=== PATIENT | female | born 1950 | race Caucasian/White ===

== ENCOUNTER 2017-07-03 09:30 | Inpatient (IN) | payer OTHER ==
--- NOTE | 2017-07-06 12:13 | HP ---
Satellite [facility] - Chief Complaint Chief Complaint: right knee - Past Medical History Allergies/Adverse Reactions: Allergies Allergy/AdvReac Type Severity Reaction Status Date / Time No Known Drug Allergies Allergy Verified 05/30/17 12:44 - Current Medications Current Medications: Home Medications Medication Instructions Recorded Atorvastatin Ca [Lipitor] 40 mg PO HS 05/30/17 Cholecalciferol (Vitamin D3) 2,000 unit PO DAILY 05/30/17 [Vitamin D] Diltiazem Cd [Cardizem Cd -] 300 mg PO HS 05/30/17 Satellite Physical Exam - Physical Examination General Appearance: Well Nourished, Well Developed, Alert & Oriented x3 ENT: Clear Lung: Normal air movement Heart: Regular rate & rhythm Extremities: Other (right knee- +swelling, + ttp, decr rom, nvi xrays shw grade 4 tricompartmental djd) Neurological: Intact, Alert, Oriented Satellite Impression/Plan - Impression/Plan Impression: right knee djd Operative Procedure: right aruna tkr Date to be Performed: 07/10/17
[2017-07-10] MEDS ORDERED: CELECOXIB 200 MG CAPSULE PO ONE (10:00)
[2017-07-10] MEDS ORDERED: CEFAZOLIN 1 GM/D5W 1 GRAM/50 ML BAG IVPB ONE (10:00)
[2017-07-10] MEDS ORDERED: GABAPENTIN 300 MG CAPSULE (FP) PO ONE (10:00)
[2017-07-10] MEDS ORDERED: oxyCODONE HCL 10 MG SUSTAINED ACTING TABLET PO ONE (10:00)
[2017-07-10] MEDS ORDERED: TRANEXAMIC ACID 1000 MG/10 ML VIAL IVPUSH ONE (10:00)
[2017-07-10 10:18] VITALS: BMI 27.9
[2017-07-10] MEDS ORDERED: MIDAZOLAM HCL 2 MG/2 ML SINGLE DOSE VIAL ONE ×2 (11:47→12:56)
[2017-07-10] MEDS ORDERED: BUPIVACAINE LIPOSOME/PF (EXPAREL) 266 MG/20 ML VIAL ONE (11:48)
[2017-07-10] MEDS ORDERED: VANCOMYCIN 1,000 MG VIAL (RESTRICTED TO ID ONLY) ONE (11:57)
[2017-07-10] MEDS ORDERED: ceFAZolin SODIUM 1 GM VIAL ONE ×2 (11:57→12:50)
[2017-07-10] MEDS ORDERED: ROPIVACAINE HCL 0.5% 30ML VIAL ONE (12:09)
[2017-07-10] MEDS ORDERED: SODIUM CHLORIDE 0.9% P/F 10 ML VIAL IJ ONE (12:50)
[2017-07-10] MEDS ORDERED: PROPOFOL 20 ML ONE ×2 (13:02→14:02)
[2017-07-10] MEDS ORDERED: ONDANSETRON 4 MG/2 ML VIAL IVPUSH PRN ×2 (14:36→14:49)
[2017-07-10] MEDS ORDERED: MAGNESIUM HYDROX 2400MG/30ML ORAL SUSPENSION 30 ML CUP PO PRN (14:36)
[2017-07-10] MEDS ORDERED: MAG HYDROX/AL HYDROX/SIMETH 30 ML UNIT-DOSE CUP PO PRN (14:36)
--- NOTE | 2017-07-10 14:38 | OP ---
Operative Note - Note: Operative Date: 07/10/17 (oscar) Pre-Operative Diagnosis: right knee djd Operation: right aruna tkr Post-Operative Diagnosis: Same as Pre-op Surgeon: Travis Porter Intelligence Agent: Ramon Abdul Anesthesiologist/EDUCATIONAL INSTITUTION PRESIDENT: Jose Herrera Anesthesia: Spinal, Local Specimens Removed: bone fragments Estimated Blood Loss (mls): 150 Operative Report Dictated: Yes
[2017-07-10] MEDS ORDERED: LACTATED RINGERS SOLUTION 1,000 ML IV SCH (14:45)
[2017-07-10] MEDS ORDERED: PROMETHAZINE HCL 25 MG/1 ML VIAL IVPUSH PRN (14:49)
[2017-07-10] MEDS: ACETAMINOPHEN 325 MG TABLET (FP) PO SCH ×2 (15:08→21:21)
[2017-07-10] MEDS: oxyCODONE HCL 5 MG TABLET PO PRN ×3 (15:30→21:24)
--- NOTE | 2017-07-10 15:40 | SPEC ---
DATE OF OPERATION: 07/10/2017 PREOPERATIVE DIAGNOSIS: Degenerative joint disease, right knee. POSTOPERATIVE DIAGNOSIS: Degenerative joint disease, right knee. PROCEDURE: Right total knee replacement with robotic-assisted navigation (Makoplasty). SURGICAL ATTENDING: Travis Porter M.D. SITE HEAD: David Pina ANESTHESIA: Regional and spinal. CLOSURE: A cemented Triathlon knee system with a 2 PS femur, a 2 tibia, a 9 polyethylene, a 32 patella, number 1 Vicryl fascia, 0 and 2-0 subcutaneous, and 3-0 Monocryl for skin with skin glue, 4-0 undyed Vicryl for pin sites. ESTIMATED BLOOD LOSS: Approximately 100 mL. COMPLICATIONS: None. CONDITION: To recovery room in stable condition. DESCRIPTION OF OPERATIVE PROCEDURE: Patient was taken to the operating room on March 20, 2017. Regional and general anesthesia was administered by the anesthesiologist. IV Kefzol and TXA were administered by the anesthesiologist. Well-padded pneumatic tourniquet was placed on the proximal thigh. The right lower extremity was prepped and draped in the usual sterile fashion. The leg was exsanguinated with an Esmarch bandage, and tourniquet was inflated to 275 mmHg. A 12 to 15-cm longitudinal midline incision was incised while centered over the patella. The dissection was carried down to the level of the extensor mechanism with sufficient flaps made to adequately perform the procedure. A medial parapatellar arthrotomy was then performed. We made a cuff of tissue on the patella for later closure. The patella was inverted, the knee was flexed up. The fat pad was excised. The subperiosteal dissection was on the anteromedial proximal tibia around towards the direction of the MCL. The ACL and the PCL were transected and debrided. The meniscal remnants of the medial and lateral meniscus were debrided and removed. This allowed the knee to be able to "be brought forward." The checkpoints were malleted into the tibia and into the femur. Two threaded pins were drilled anteroposteriorly proximal to the knee through the previous incision, through the anterior cortex, then just engaging the posterior cortex. To these pins was assembled the femoral navigation array. One handbreadth below the tibial tubercle, 2 stab incisions were used to drill 2 threaded pins in parallel fashion into the tibia, again through the anterior cortex and just engaging the posterior cortex. To these pins was fastened the tibial arrays. The knee was then registered with the navigation device with center of rotation of the hip, medial and lateral malleoli, both checkpoints, and multiple points on both the femur and the tibia to ensure excellent registration. The navigation device was directed off the "top of the bubbles" on both the femur and the tibia. The navigation passed within less than 0.5 mm to plan. The knee was then thoroughly inspected to remove all osteophytes both medially, laterally, and on the femur and the tibia, and whatever osteophytes were available for dissection. The knee was then taken to extension and to flexion, and stressed in both varus and valgus to assess flexion gaps. The virtual position of the components on the navigation device were then manipulated to optimize the position and to ensure equal gaps in both flexion and extension, and both medially and laterally. The robot was then brought into the field and was registered. The cuts were then made both on the femur and on the tibia as to plan. All osteophytes posteriorly were then removed as well. The gaps were then measured again in flexion and extension to be equal in both flexion and extension and medial and laterally. The femoral notch was then made, as we were doing a posterior stabilizing component, with the appropriate sized box. Trial reduction of the femur achieved excellent [id number] fit. A tibial baseplate of appropriate polyethylene thickness was "floated in the knee." It was ensured to be in the excellent position by navigation devices and was pinned in place. The knee was taken through a range of motion, and found to have excellent stability throughout flexion and extension. The patella was calibrated for thickness and osteotomized down to the appropriate level. The appropriate lollipop was used to drill the lug holes in the patella and the trial button was applied. The knee was taken through a range of motion and found to have excellent tracking of the patella, and patella from full extension to full flexion. Trial components were removed, the keel was punched and drilled, and a sclerotic bone on the tibia was drilled to help with cement interdigitation. The knee was thoroughly irrigated with the pulse antibiotic oxyacetylene burner. The real components were then cemented in using monitored arrangement cement techniques with antibiotic cement, and pressurization and extension. After the cement was hardened, the knee was thoroughly inspected to remove any extra cement. The real polyethylene component was then clipped into place. Range of motion, stability, and tracking were as described earlier. The checkpoints and the pins were removed. The knee was thoroughly irrigated with antibiotic irrigation. Vancomycin powder was placed into the knee for antibiotic prophylaxis. The medial parapatellar arthrotomy was then closed using number 1 Vicryl interrupted suture. After closure of the deep layer, the knee was taken through a range of motion, and found to have excellent stability of the patella with no dislocation and no undue tension on the repair. The subcutaneous was pulse antibiotic irrigated, and was then closed with 2-0 Vicryl, 3-0 Monocryl subcuticular with the skin glue for the skin. The distal tibial pin site was irrigated thoroughly as well and then closed with 4-0 undyed Vicryl. A sterile Aquacel dressing was applied, followed by a Aguillon dressing. Tourniquet was deflated. Total tourniquet time was approximately 75 minutes. No complications. Patient was awakened from anesthesia and transferred to recovery room in stable condition. Postoperative x-rays revealed excellent position of the components. Sai [id number]
[2017-07-10] MEDS ORDERED: PT OWN MED DRAWER 7, Y5N ONE (21:06)
[2017-07-10] MEDS: SENNOSIDES/DOCUSATE COMBO (SENNA PLUS) TABLET (UD) PO SCH (21:22)
[2017-07-10] MEDS: ATORVASTATIN CA 40 MG TABLET (FP) PO SCH (21:23)
[2017-07-10] MEDS: GABAPENTIN 300 MG CAPSULE (FP) PO SCH (21:23)
[2017-07-10] MEDS: CEFAZOLIN 1 GM/D5W 1 GM/50 ML BAG IVPB SCH (21:24)
[2017-07-11] MEDS: oxyCODONE HCL 5 MG TABLET PO PRN ×2 (01:06→21:23)
[2017-07-11] MEDS: ACETAMINOPHEN 325 MG TABLET (FP) PO SCH ×5 (03:14→21:24)
[2017-07-11] MEDS: CEFAZOLIN 1 GM/D5W 1 GM/50 ML BAG IVPB SCH (06:10)
[2017-07-11] MEDS: LACTATED RINGERS SOLUTION 1,000 ML IV SCH ×2 (07:41→16:15)
[2017-07-11] MEDS: ASPIRIN 325 MG TABLET PO SCH (08:10)
[2017-07-11 08:52] LABS: HEMOGLOBIN 12.2 GM/dl (10.7-15.3); MCH 31.9 pg (25.7-33.7); MEAN CELL VOLUME 88.6 fl (80-96); MEAN PLT VOLUME 8.6 fl (7.5-11.1); PLATELET COUNT 236 K/MM3 (134-434); RBC 3.84 M/mm3 (3.60-5.2); RDW 12.6 % (11.6-15.6); WHITE BLOOD COUNT 7.1 K/mm3 (4.0-10.8)
[2017-07-11] MEDS: GABAPENTIN 300 MG CAPSULE (FP) PO SCH ×2 (09:10→21:23)
[2017-07-11] MEDS: SENNOSIDES/DOCUSATE COMBO (SENNA PLUS) TABLET (UD) PO SCH ×2 (09:10→21:23)
[2017-07-11] MEDS: MULTIVITAMINS (DAILY MVI) TABLET (FP) PO SCH (09:10)
[2017-07-11] MEDS: PANTOPRAZOLE 40 MG TABLET (FP) PO SCH (09:10)
--- NOTE | 2017-07-11 09:28 | PN ---
Progress Note (short form) - Note Progress Note: Ortho Pt seen and examined s/p right aruna tkr pod #1 Selected Entries 07/11/17 06:00 Temperature 98.3 F Pulse Rate 75 Respiratory 18 Rate Blood Pressure 111/60 Laboratory Tests 07/11/17 07:48 WBC 7.1 Hgb 12.2 Hct 34.0 Plt Count 236 dressing draining superiorly, rom 0-50, calf soft, nt nvi a/p dressing changed PT dvt ppx pain control d/c home tomorrow if stable
--- NOTE | 2017-07-11 09:59 | PN ---
Progress Note (short form) - Note Progress Note: ANESTHESIOLOGY POST-OP CHECK 66F s/p right total knee replacement under spinal anesthesia and PNB, POD #1. No acute complaints. Pain 2/10 and tolerable. Denies N/V currently. Ambulating and voiding. Vital Signs Temperature 98.3 F 07/11/17 06:00 Pulse Rate 75 07/11/17 06:00 Respiratory Rate 18 07/11/17 06:00 Blood Pressure 111/60 07/11/17 06:00 O2 Sat by Pulse Oximetry (%) 98 07/11/17 06:00 Active Medications Acetaminophen (Tylenol -) 650 mg PO Q6H [facility] Stop: 07/13/17 14:59 Last Admin: 07/11/17 09:10 Dose: 650 mg Al Hydroxide/Mg Hydroxide (Mylanta Oral Suspension -) 30 ml PO Q4H PRN PRN Reason: DYSPEPSIA Aspirin (Asa -) 325 mg PO DAILY@0800 [facility] Last Admin: 07/11/17 08:10 Dose: 325 mg Atorvastatin Calcium (Lipitor -) 40 mg PO [facility] Last Admin: 07/10/17 21:23 Dose: 40 mg Diltiazem HCl (Cardizem Cd -) 300 mg PO [facility] Last Admin: 07/10/17 22:36 Dose: 300 mg Gabapentin (Neurontin -) 300 mg PO BID [facility] Last Admin: 07/11/17 09:10 Dose: 300 mg Lactated Ringer's (Lactated Ringers Solution) 1,000 mls @ 125 mls/hr IV ASDIR [facility] Last Admin: 07/11/17 07:41 Dose: Not Given Magnesium Hydroxide (Milk Of Magnesia -) 30 ml PO PRN PRN PRN Reason: CONSTIPATION Multivitamins/Minerals/Vitamin C (Tab-A-Vit -) 1 tab PO DAILY [facility] Last Admin: 07/11/17 09:10 Dose: 1 tab Ondansetron HCl (Zofran Injection) 4 mg IVPUSH Q6H PRN PRN Reason: NAUSEA Oxycodone HCl (Roxicodone -) 10 mg PO Q3H PRN PRN Reason: PAIN LEVEL 6-10 Last Admin: 07/11/17 01:06 Dose: 10 mg Oxycodone HCl (Roxicodone -) 5 mg PO Q6H PRN PRN Reason: PAIN LEVEL 1-5 Last Admin: 02/13/18 18:00 Dose: 5 mg Pantoprazole Sodium (Protonix -) 40 mg PO DAILY [facility] Last Admin: 07/11/17 09:10 Dose: 40 mg Senna/Docusate Sodium (Pericolace -) 2 tablet PO BID [facility] Last Admin: 07/11/17 09:10 Dose: 2 tablet Gen: Awake, alert No apparent anesthesia complications. Pain controlled. Continue management as per primary team.
[2017-07-11] MEDS: ATORVASTATIN CA 40 MG TABLET (FP) PO SCH (21:23)
[2017-07-11] MEDS ORDERED: PT OWN MED DRAWER 7, Y5N ONE (22:02)
[2017-07-12] MEDS: ACETAMINOPHEN 325 MG TABLET (FP) PO SCH ×2 (03:27→09:00)
[2017-07-12 06:25] VITALS: BP 119/66; PULSE 78; TEMP 99.1
[2017-07-12] MEDS: ASPIRIN 325 MG TABLET PO SCH (08:00)
[2017-07-12 08:10] LABS: HEMOGLOBIN 11.5 GM/dl (10.7-15.3); MCHC 33.8 g/dl (32.0-36.0); MEAN CELL VOLUME 88.7 fl (80-96); MEAN PLT VOLUME 8.6 fl (7.5-11.1); PLATELET COUNT 240 K/MM3 (134-434); RBC 3.83 M/mm3 (3.60-5.2); RDW 12.6 % (11.6-15.6); WHITE BLOOD COUNT 8.7 K/mm3 (4.0-10.8)
--- NOTE | 2017-07-12 08:22 | DS ---
Physical Examination Vital Signs: Vital Signs Temperature 99.1 F 07/12/17 06:00 Pulse Rate 78 07/12/17 06:00 Respiratory Rate 18 07/12/17 06:00 Blood Pressure 119/66 07/12/17 06:00 O2 Sat by Pulse Oximetry (%) 93 L 07/12/17 06:00 Discharge Summary Reason For Visit: OSTEOARTHRITIS Procedures: Principal: s/p right aruna tkr Hospital Course: admitted for elective right aruna tkr, uneventful post-op, stable for d/c Condition: Good - Instructions Diet, Activity, Other Instructions: Post-op Instructions-Total Knee Replacement Call the office for a follow-up appointment in 1 week - [phone] Aspirin 325mg daily for 6 weeks. Pain medication was sent into your pharmacy. Apply Graduated Compression Stockings (TEDs) to both lower extremities- remove daily for hygiene ONLY Apply Sequential Compression Device (SCDs) to both Lower extremities remove for PT and hygiene ONLY Apply cold packs to affected area for 15 minutes every 2 hours. Physical Therapist will come to your home for the first 5 days. You will be set up with outpatient PT at your first post-operative visit. Patient may ambulate as tolerated-encourage self care (at least every 2-3 hours while awake) with walker or cane Maintain Aquacel (waterproof) dressing to operative wound (will be removed by surgeon at first office visit) Shower with Aquacel dressing in place-if Aquacel integrity compromised, remove and apply dry sterile dressing and notify Orthopedist. DO NOT SHOWER unless Orthopedists approves without Aquacel dressing CONTACT THE OFFICE FOR ANY CHANGE IN YOUR CONDITION (for example-fever greater than 102 degrees, excessive bleeding from operative site, purulent drainage, severe swelling or pain) GO TO THE EMERGENCY ROOM IF THERE IS A MEDICAL EMERGENCY Knee Precautions: * Keep a rolled towel under affected heel while in bed or chair (to keep knee in extension) * Keep affected leg elevated except during mealtimes * DO NOT PLACE PILLOW UNDER AFFECTED KNEE * If you have any questions, please do not hesitate to call the office - [phone]. Referrals: Travis Porter MD [Staff Physician] - - Home Medications Comprehensive Discharge Medication List: Ambulatory Orders Atorvastatin Ca [Lipitor] 40 mg PO HS 05/30/17 Cholecalciferol (Vitamin D3) [Vitamin D3] 2,000 unit PO DAILY 05/30/17 Diltiazem Cd [Cardizem Cd -] 300 mg PO HS 05/30/17 Aspirin [ASA -] 325 mg PO DAILY@0800 tablet 07/10/17 Oxycodone HCl/Acetaminophen [Percocet 5-325 mg Tablet] 1 - 2 tab PO Q6H #50 tab MDD 8 07/10/17
--- NOTE | 2017-07-12 08:22 | PN ---
Progress Note (short form) - Note Progress Note: Ortho Pt seen and examined s/p right aruna tkr pod #2 Selected Entries 07/12/17 06:00 Temperature 99.1 F Pulse Rate 78 Respiratory 18 Rate Blood Pressure 119/66 Laboratory Tests 07/12/17 07:25 WBC Pending Hgb Pending Hct Pending Plt Count Pending incision c/d/i, no drainage noted, rom 0-50, calf soft, nt nvi a/p dressing changed PT dvt ppx pain control d/c home today f/u in 1 week
[2017-07-12] MEDS: PANTOPRAZOLE 40 MG TABLET (FP) PO SCH (09:51)
[2017-07-12] MEDS: GABAPENTIN 300 MG CAPSULE (FP) PO SCH (09:52)
[2017-07-12] MEDS: SENNOSIDES/DOCUSATE COMBO (SENNA PLUS) TABLET (UD) PO SCH (09:52)
[2017-07-12] MEDS: oxyCODONE HCL 5 MG TABLET PO PRN (09:53)
[2017-07-12] MEDS: MULTIVITAMINS (DAILY MVI) TABLET (FP) PO SCH (09:59)
--- NOTE | 2017-07-17 16:31 | PATH ---
Surgical Pathology Report Patient Name: RAJAT NORTON Med. Rec. #: [id number] /Age/Gender: 1950 (Age: 66) / F Account: [id number] Location: [facility] MED-SURG Taken: 07/10/2017 Received: 07/10/2017 Reported: 07/17/2017 Physicians: Travis Porter M.D. Specimen(s) Received BONE RIGHT KNEE Clinical History Right knee osteoarthritis Final Diagnosis BONE, RIGHT KNEE, TOTAL KNEE REPLACEMENT: DEGENERATIVE JOINT DISEASE. Electronically Signed Gena Chavez M.D. Gross Description Received in formalin labeled "bone right knee," is a 9.0 x 7.0 x 1.8 cm aggregate of multiple andre-yellow, irregular portions of bone and soft tissue, consistent with knee bones. There is a 2.8 cm greatest dimension area of eburnation identified. The remaining articular surfaces are andre-yellow and focally granular. The underlying trabecular bone is yellow and hard. Certified Surgical Technologist sections are submitted in one cassette, following decalcification. 07/12/2017 [facility]07/12/2017
== END 2017-07-12 12:23 | disposition home health service (06) | DRG 470 ==
LOC: FASU 07-10 09:48 → FM/S 07-10 10:00 → FASU 07-10 10:00 → EDSTATUS 07-10 12:30
PROVIDERS: ADMIT Orthopaedic Surgery; ATTEND Orthopaedic Surgery
PROC: 8E0Y0CZ Robotic Assisted Procedure of Lower Extremity, Open Approach (ICD-10-PCS; 2017-07-10)
PROC: 0SRC069 Replacement of Right Knee Joint with Oxidized Zirconium on Polyethylene Synthetic Substitute, Cemented, Open Approach (ICD-10-PCS; principal; 2017-07-10 13:04)
DX: M17.11 Unilateral primary osteoarthritis, right knee (principal)
CPT/HCPCS: 36415; 73560-TC-RT-FY; 85027; 88304-TC; 88311-TC; 94010; 97116-GP; 97162-GP